=== PATIENT | female | born 1980 | race Asian ===

== ENCOUNTER 2019-06-17 13:35 | Inpatient (IN) | payer MEDICAID ==
[~2019-06-17] VITALS: Ht 149.9 cm; Wt 49.4 kg
[2019-06-17 13:59] LABS: HEMATOCRIT 41.9 % (37.0-47.0); MEAN CELL VOLUME 93 fl (80.0-100.0); MEAN CORPUSCULAR HEMOGLOBIN 31 pg (27.0-31.0); MEAN CORPUSCULAR HGB CONC 33 g/dl (33.0-37.0); MEAN PLATELET VOLUME 10.2 fl (7.4-10.4); PLATELET COUNT 238 K/mm3 (130-400); RED BLOOD COUNT 4.53 M/mm3 (4.10-5.30); REDCELL DISTRIBUTION WIDTH-CV 11.6 % (11.5-14.5)
[2019-06-17 14:09] LABS: COLLECTION METHOD CLEAN CATCH
[2019-06-17 14:17] LABS: MUCOUS Present /lpf; PH 5 (5-8); SQUAMOUS EPITHELIAL 0-2 /hpf; URINE APPEARANCE Cloudy; URINE BACTERIA Rare /hpf; URINE BILIRUBIN Negative (NEGATIVE); URINE BLOOD 3+ (NEGATIVE); URINE COLOR Yellow; URINE GLUCOSE Negative (NEGATIVE); URINE KETONE Trace (NEGATIVE); URINE LEUKOCYTE ESTERASE 2+ (NEGATIVE); URINE NITRATE Negative (NEGATIVE); URINE PROTEIN(semi-quant) 2+ (NEGATIVE); URINE RBC >50 /hpf; URINE UROBILINOGEN Negative (NEGATIVE)
[2019-06-17 14:22] LABS: ALANINE AMINOTRANSFERASE < 6 U/L (9-52); ALBUMIN 4.9 gm/dL (3.5-5.0); ALKALINE PHOSPHATASE 85 U/L (50-136); ANION GAP 19 mmol/L (7-16); AST,SGOT 32 U/L (15-37); BILIRUBIN,TOTAL 0.5 mg/dL (0.0-1.0); BLOOD UREA NITROGEN 13 mg/dL (7-17); CALCIUM 9.4 mg/dL (8.4-10.2); CARBON DIOXIDE 21 mmol/L (22-30); CHLORIDE 102 mmol/L (98-107); CREATININE, serum 0.52 (0.52-1.25); GLUCOSE 101 mg/dL (74-106); LIPASE 38 U/L (23-300); POTASSIUM 4.1 mmol/L (3.4-5.0); SODIUM 141 mmol/L (137-145); TOTAL PROTEIN 8.7 gm/dL (6.4-8.2)
[2019-06-17 14:30] LABS: BAND 2 % (0-10); LYMPHOCYTE 14 % (20.0-51.0); NEUTROPHILS 83 % (42.0-75.2); PLATELET ESTIMATE NORMAL (NORMAL)
[2019-06-17] MEDS ORDERED: CIPRO 500MG TA500 MG PO (18:11)
[2019-06-17 20:33] VITALS: BP 85/58; PULSE 99; TEMP 98.1
[2019-06-17 20:34] VITALS: BP 85/58; PULSE 99; TEMP 98.1
--- NOTE | 2019-06-17 21:20 | NUR ---
PT ADMITTED WITH PYELONEPHRITIS. PT'S ONLY COMPLAINT ON ADMISSION IS A HEADACHE. BLOOD PRESSURE REMAINS LOW, 85 SYSTOLIC. PT IS ABLE TO STAND AND AMBULATE WITH STANDBY ASSISTANCE. PT HAD RECENT UTI. SEE 5 PAGE ADMISSION ASSESSMENT.
[2019-06-17 23:04] VITALS: BP 88/58; PULSE 90; TEMP 98.6
[2019-06-18 03:56] VITALS: BP 81/51; PULSE 77; TEMP 98.1
--- NOTE | 2019-06-18 06:00 | NUR ---
RESTING QUIETLY. NO c/o N/V. PT STATES HER HEAD STILL HURTS SOME BUT IMPROVED OVERALL. PT'S BLOOD PRESSURE STILL LOW.
--- NOTE | 2019-06-18 08:00 | NUR ---
Pt is awake and A/Ox4, resting in bed. She states she is feeling "slightly better." She states she is having a slight headache, rating it a 7/10 on pain scale. PRN tylenol given for this. IV to right hand is free of complications. Pt is up in room as tolerated. Denies any other needs.
[2019-06-18 08:10] LABS: BASO # 0.1 (0.0-0.2); BASO % 0.3 % (0.0-2.0); EOS % 0.2 % (0-4.0); GRAN # 19.7 (1.4-6.5); GRAN % 88.5 % (42.2-75.2); LYMPH # 1.5 (1.2-3.4); LYMPH % 6.8 % (20.0-51.0); MEAN CELL VOLUME 90 fl (80.0-100.0); MEAN CORPUSCULAR HGB CONC 35 g/dl (33.0-37.0); MEAN PLATELET VOLUME 10.4 fl (7.4-10.4); MONO # 0.8 (0.1-0.6); MONO % 3.5 % (1.7-9.3); PLATELET COUNT 183 K/mm3 (130-400); RED BLOOD COUNT 3.48 M/mm3 (4.10-5.30); REDCELL DISTRIBUTION WIDTH-CV 11.9 % (11.5-14.5)
[2019-06-18 08:23] LABS: CALCIUM 7.4 mg/dL (8.4-10.2); CREATININE, serum 0.39 (0.52-1.25); POTASSIUM 3.2 mmol/L (3.4-5.0)
[2019-06-18 08:26] LABS: HEMATOCRIT 31.3 % (37.0-47.0); HEMOGLOBIN 10.8 g/dl (12.5-16.0); MEAN CORPUSCULAR HEMOGLOBIN 31 pg (27.0-31.0)
[2019-06-18 08:43] VITALS: BP 84/52; PULSE 78; TEMP 98.2
--- NOTE | 2019-06-18 11:20 | NUR ---
KIMBERLI met with the patient to discuss a discharge plan. The pt lives in [place] with her family. The pt does not use DME and reports independence with ADLs.The pt's PCP is Dr. Lopez and pt receives medications from [facility] with no difficulties. The pt does not have advanced directives in the EMR and was interested in obtaining a DPOA-HC form. KIMBERLI provided the form. The pt plans to return home upon discharge. There are no addtional needs at this time.
[2019-06-18 12:32] VITALS: BP 90/61; PULSE 73; TEMP 98.2
[2019-06-18 15:53] VITALS: BP 97/60; PULSE 87; TEMP 99.1
--- NOTE | 2019-06-18 16:13 | NUR ---
Pt was given PRN tylenol for 5/10 headache. Pt denies any other needs at this time.
--- NOTE | 2019-06-18 17:39 | NUR ---
Pt has done well throughout shift. She has had a headache on and off throughout shift, tylenol given for this. Pt denies any other needs.
[2019-06-18 19:10] VITALS: BP 103/65; PULSE 76; TEMP 98.5
--- NOTE | 2019-06-18 20:00 | NUR ---
Pt sitting up in bed with her 2 children and spouse at side. Denies pain at this time. IVF of NS continue to infuse at 125mL/hr. Assessment complete. Tele on with HR in the 80's and regular. LS CTA. Skin warm and dry. Up ad andreea in room. Call light within reach. Will continue to monitor.
[2019-06-19 00:11] VITALS: BP 97/62; PULSE 83; TEMP 99.5
[2019-06-19 04:34] VITALS: BP 104/67; PULSE 81; TEMP 98.7
[2019-06-19 06:08] LABS: BASO % 0.3 % (0.0-2.0); EOS # 0.1 (0.0-0.7); EOS % 0.5 % (0-4.0); GRAN # 11.3 (1.4-6.5); GRAN % 85.7 % (42.2-75.2); HEMOGLOBIN 10.8 g/dl (12.5-16.0); LYMPH # 1.1 (1.2-3.4); LYMPH % 8.5 % (20.0-51.0); MEAN CELL VOLUME 91 fl (80.0-100.0); MEAN CORPUSCULAR HEMOGLOBIN 30 pg (27.0-31.0); MEAN CORPUSCULAR HGB CONC 33 g/dl (33.0-37.0); MEAN PLATELET VOLUME 11.1 fl (7.4-10.4); MONO # 0.6 (0.1-0.6); MONO % 4.4 % (1.7-9.3); PLATELET COUNT 181 K/mm3 (130-400); RED BLOOD COUNT 3.58 M/mm3 (4.10-5.30); REDCELL DISTRIBUTION WIDTH-CV 11.9 % (11.5-14.5)
[2019-06-19 06:13] LABS: CALCIUM 7.7 mg/dL (8.4-10.2); CREATININE, serum 0.41 (0.52-1.25); POTASSIUM 3.3 mmol/L (3.4-5.0)
[2019-06-19 06:20] LABS: HEMATOCRIT 32.6 % (37.0-47.0)
--- NOTE | 2019-06-19 07:10 | NUR ---
Received report, went to meet patient and she is observed resting in bed with eyes closed, head of bed slightly elevated. Respirations are observed to be even and nonlabored. Call light and personal items are within reach.
[2019-06-19 08:44] VITALS: BP 116/78; PULSE 85; TEMP 99
--- NOTE | 2019-06-19 11:28 | NUR ---
Initial visit; Patient talked about how she got to the hospital Emergency Room with God's help and how she continues to look to Him for strength. Specialty Manufacturing Supervisor and Ze shared prayer for continued healing and in thanksgiving for God's help. Specialty [employer] Supervisor will follow up.
[2019-06-19 11:41] VITALS: BP 114/76; PULSE 91; TEMP 99.3
[2019-06-19] MEDS ORDERED: CIPRO 500MG TA500 MG PO (12:38)
== END 2019-06-19 13:50 | disposition home or self-care (01) | DRG 872 ==
LOC: COL.ER 13:35 → MEDICAL 18:59
PROVIDERS: Family Medicine; ADMIT Family Medicine
DX: A41.51 Sepsis due to Escherichia coli [E. coli] (principal); E87.2 Acidosis; N12 Tubulo-interstitial nephritis, not specified as acute or chronic; E02 Subclinical iodine-deficiency hypothyroidism; N30.90 Cystitis, unspecified without hematuria; E87.6 Hypokalemia
CPT/HCPCS: 99222-AI; 99239; A4216; G0378; J0696; J1650; J2405; J2543; J3010; J7030